=== PATIENT | male | born 1955 | race Caucasian/White ===

== ENCOUNTER 2021-05-30 12:50 | Emergency (ER) | payer BC ==
[2021-05-30] MEDS ORDERED: SODIUM CHLORIDE 0.9% 500 ML 500 ML IV STA (12:52)
[2021-05-30 12:56] LABS: Glucose,Whole Blood 126 mg/dL (75-99)
--- NOTE | 2021-05-30 12:58 | ED ---
General Adult HPI <Mago Jennings P - Last Filed: 05/30/21 16:47> - General Source: patient, EMS, RN notes reviewed, old records reviewed <Herrera Chaidez - Last Filed: 06/02/21 20:48> - General Stated complaint: possible stroke Time Seen by Provider: 05/30/21 12:50 - History of Present Illness Initial comments: This is a 65-year-old male with past medical history significant for hypertension. [place] when he started having some peripheral vision loss on the right he states it's in both eyes. Patient then had some left-sided weakness and tingling in both his arm and leg and it continues in his arm currently the leg seems to have improved. Patient's stated that he was having some intermittent slurred speech as well. P atient currently still has a little bit of visual field defect on the right he states and his arm feels tingly on the left and his face feels tingly on the left. did not report any facial droop. Patient's symptoms started approximately 45 minutes prior to arrival. Patient denies any chest pain difficult breathing shortness breath. Patient denies any pain anywhere. (Herrera Chaidez) - Related Data Home Medications Medication Instructions Recorded Confirmed Enalapril Maleate 20 mg PO DAILY 05/30/21 05/30/21 Fluoride (Sodium) [Sodium Fluoride 1 applic DENTAL HS 05/30/21 05/30/21 5000 Plus] Allergies Allergy/AdvReac Type Severity Reaction Status Date / Time No Known Allergies Allergy Verified 05/30/21 13:18 Review of Systems ROS Other: All systems not noted in ROS Statement are negative. <Mago Jennings P - Last Filed: 05/30/21 16:47> ROS Other: All systems not noted in ROS Statement are negative. <Herrera Chaidez - Last Filed: 06/02/21 20:48> ROS Statement: Those systems with pertinent positive or pertinent negative responses have been documented in the HPI. General Exam <Herrera Chaidez - Last Filed: 06/02/21 20:48> - General Exam Comments Initial Comments: GENERAL: Patient is well-developed and well-nourished. Patient is nontoxic and well- hydrated and is in mild distress. ENT: Neck is soft and supple. No significant lymphadenopathy is noted. Oropharynx is clear. Moist mucous membranes. Neck has full range of motion without eliciting any pain. EYES: The sclera were anicteric and conjunctiva were pink and moist. Extraocular movements were intact and pupils were equal round and reactive to light. Eyelids were unremarkable. PULMONARY: Unlabored respirations. Good breath sounds bilaterally. No audible rales rhonchi or wheezing was noted. CARDIOVASCULAR: There is a regular rate and rhythm without any murmurs gallops or rubs. ABDOMEN: Soft and nontender with normal bowel sounds. SKIN: Skin is clear with no lesions or rashes and otherwise unremarkable. NEUROLOGIC: Patient is alert and oriented x3. Cranial nerves II through XII are grossly intact. Patient has some slight slurred speech. Patient's finger-nose testing on the left is slightly off compared to the right. Patient's strength on the left hand is likely less than the right hand. Bilateral dorsi and plantarflexion are equal. Patient states that his arm and leg on the left feel tingly and so does his face on the left. MUSCULOSKELETAL: Normal extremities with adequate strength and full range of motion. No lower extremity swelling or edema. No calf tenderness. LYMPHATICS: No significant lymphadenopathy is noted PSYCHIATRIC: Normal psychiatric evaluation. (Herrera Chaidez) Course Vital Signs 05/30/21 05/30/21 05/30/21 12:50 13:00 13:15 Temperature 98.1 F 98.2 F Pulse Rate 88 86 82 Respiratory 16 16 16 Rate Blood Pressure 125/67 151/83 161/93 O2 Sat by Pulse 98 97 97 Oximetry 05/30/21 05/30/21 05/30/21 13:30 14:03 14:30 Temperature Pulse Rate 84 82 88 Respiratory 16 16 16 Rate Blood Pressure 158/84 150/83 158/84 O2 Sat by Pulse 98 100 97 Oximetry 05/30/21 05/30/21 05/30/21 15:15 15:20 15:24 Temperature Pulse Rate 86 35 L 147 H Respiratory 16 18 Rate Blood Pressure 152/81 44/32 70/36 O2 Sat by Pulse 97 75 L Oximetry 05/30/21 05/30/21 05/30/21 15:30 15:35 16:00 Temperature 98.2 F Pulse Rate 105 H 131 H 113 H Respiratory 12 18 20 Rate Blood Pressure 69/59 132/73 152/87 O2 Sat by Pulse 99 99 Oximetry 05/30/21 05/30/21 05/30/21 16:49 17:14 17:15 Temperature Pulse Rate 98 97 98 Respiratory 18 15 17 Rate Blood Pressure 93/58 88/58 88/58 O2 Sat by Pulse 99 98 100 Oximetry 05/30/21 05/30/21 05/30/21 17:20 18:00 18:10 Temperature 98 F Pulse Rate 105 H 87 80 Respiratory 15 15 15 Rate Blood Pressure 81/53 87/53 100/61 O2 Sat by Pulse 97 99 98 Oximetry 05/30/21 05/30/21 05/30/21 18:40 18:50 19:00 Temperature Pulse Rate 83 79 75 Respiratory 18 18 15 Rate Blood Pressure 94/67 94/67 94/67 O2 Sat by Pulse 96 97 97 Oximetry 05/30/21 05/30/21 05/30/21 19:30 20:00 20:30 Temperature Pulse Rate 71 70 73 Respiratory 14 14 15 Rate Blood Pressure 81/54 82/54 115/70 O2 Sat by Pulse 98 99 99 Oximetry 05/30/21 05/30/21 05/30/21 20:45 21:00 21:15 Temperature Pulse Rate 75 73 73 Respiratory 16 14 15 Rate Blood Pressure 84/59 76/53 81/55 O2 Sat by Pulse 97 98 100 Oximetry 05/30/21 05/30/21 05/30/21 21:30 21:45 22:00 Temperature Pulse Rate 67 74 69 Respiratory 16 16 16 Rate Blood Pressure 95/61 107/68 133/80 O2 Sat by Pulse 100 100 100 Oximetry 05/30/21 05/30/21 05/30/21 22:15 22:30 22:45 Temperature Pulse Rate 65 64 64 Respiratory 15 16 16 Rate Blood Pressure 134/76 116/69 115/68 O2 Sat by Pulse 100 100 100 Oximetry Procedures - Intubation Sedative: Versed Paralytic: Rocuronium Laryngoscope: fiber optic video scope Size: 4 ET Tube Size: 8 ET Tube Uncuffed: No Tube Secured Depth (cm): 25 Tube Secured Location: lips Tube Placement Confirmation: visualized tube passing through cords, equal breath sounds bilaterally, no breath sounds over epigastrium, confirmation by capnometry Intubation Complications: hypoxia <Mago Jennings P - Last Filed: 05/30/21 16:47> Medical Decision Making - Lab Data Result diagrams: 05/30/21 13:14 05/30/21 13:14 <Mago Jennings - Last Filed: 05/30/21 16:47> - Lab Data Result diagrams: 05/30/21 13:14 05/30/21 13:14 <Herrera Chaidez - Last Filed: 06/02/21 20:48> - Medical Decision Making A code was called to the room, apparently the patient had seizure like activity for 20-30 seconds, he was then noted to be unresponsive and bradycardic with HR of 32 appeared to be sinus rhythm on monitor. Atropine was given for bradycardia, patient's respirations were supported with BVM, despite this patient remained hypoxic. Bradycardia resolved and HR increased to 170s, patient never lost pulses but was noted to have decerebrate posturing. 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 Patient's EKG shows no ST segment elevation or depression. CTA of the head and neck shows internal carotid arteries with plaque formation right being greater than left and it's at about 50% occlusion. CT of the head shows no acute abnormality. I went back in I reevaluated the patient he had decreased sensation in the right arm and leg but no weakness at this time no slurred speech and no visual disturbance. agrees he has no facial droop or slurred speech. I spoke with the neuro interventional and Dr. nelson and he did not believe TPA was indicated at this time he wanted brilinta, Lipitor aspirin and fluids. The neurointerventionalist did not speak directly via the robot to the patient. Just prior to admission I reevaluated the patient he only had decreased sensation in the arm and leg at that time. (Herrera Chaidez) - Lab Data Lab Results 05/30/21 05/30/21 05/30/21 Range/Units 12:54 13:14 13:14 WBC 13.2 H (3.8-10.6) k/uL RBC 4.98 (4.30-5.90) m/uL Hgb 16.4 (13.0-17.5) gm/dL Hct 48.8 (39.0-53.0) % MCV 98.0 (80.0-100.0) fL MCH 32.8 (25.0-35.0) pg MCHC 33.5 (31.0-37.0) g/dL RDW 14.0 (11.5-15.5) % Plt Count 226 (150-450) k/uL MPV 7.6 Neutrophils % 77 % Lymphocytes % 14 % Monocytes % 6 % Eosinophils % 1 % Basophils % 1 % Neutrophils # 10.2 H (1.3-7.7) k/uL Lymphocytes # 1.9 (1.0-4.8) k/uL Monocytes # 0.8 (0-1.0) k/uL Eosinophils # 0.1 (0-0.7) k/uL Basophils # 0.1 (0-0.2) k/uL PT 11.2 (9.0-12.0) sec INR 1.1 (<1.2) APTT 24.8 (22.0-30.0) sec Sample Site ABG pH (7.35-7.45) ABG pCO2 (35-45) mmHg ABG pO2 (83-108) mmHg ABG HCO3 (21-25) mmol/L ABG Total CO2 (19-24) mmol/L ABG O2 Saturation (94-97) % ABG Base Excess mmol/L Jordan Test FiO2 % Sodium (137-145) mmol/L Potassium (3.5-5.1) mmol/L Chloride (98-107) mmol/L Carbon Dioxide (22-30) mmol/L Anion Gap mmol/L BUN (9-20) mg/dL Creatinine (0.66-1.25) mg/dL Est GFR (CKD-EPI)AfAm (>60 ml/min/1.73 sqM) Est GFR (CKD-EPI)NonAf (>60 ml/min/1.73 sqM) Glucose (74-99) mg/dL POC Glucose (mg/dL) 126 H (75-99) mg/dL POC Glu Quality Control Operator ID Maxine Alves Calcium (8.4-10.2) mg/dL Total Bilirubin (0.2-1.3) mg/dL AST (17-59) U/L ALT (4-49) U/L Alkaline Phosphatase (38-126) U/L Troponin I (0.000-0.034) ng/mL Total Protein (6.3-8.2) g/dL Albumin (3.5-5.0) g/dL Urine Opiates Screen (NotDetected) Ur Oxycodone Screen (NotDetected) Urine Methadone Screen (NotDetected) Ur Propoxyphene Screen (NotDetected) Ur Barbiturates Screen (NotDetected) U Tricyclic Antidepress (NotDetected) Ur Phencyclidine Scrn (NotDetected) Ur Amphetamines Screen (NotDetected) U Methamphetamines Scrn (NotDetected) U Benzodiazepines Scrn (NotDetected) Urine Cocaine Screen (NotDetected) U Marijuana (THC) Screen (NotDetected) Coronavirus (PCR) (Not Detectd) 05/30/21 05/30/21 05/30/21 Range/Units 13:14 13:14 15:27 WBC (3.8-10.6) k/uL RBC (4.30-5.90) m/uL Hgb (13.0-17.5) gm/dL Hct (39.0-53.0) % MCV (80.0-100.0) fL MCH (25.0-35.0) pg MCHC (31.0-37.0) g/dL RDW (11.5-15.5) % Plt Count (150-450) k/uL MPV Neutrophils % % Lymphocytes % % Monocytes % % Eosinophils % % Basophils % % Neutrophils # (1.3-7.7) k/uL Lymphocytes # (1.0-4.8) k/uL Monocytes # (0-1.0) k/uL Eosinophils # (0-0.7) k/uL Basophils # (0-0.2) k/uL PT (9.0-12.0) sec INR (<1.2) APTT (22.0-30.0) sec Sample Site ABG pH (7.35-7.45) ABG pCO2 (35-45) mmHg ABG pO2 (83-108) mmHg ABG HCO3 (21-25) mmol/L ABG Total CO2 (19-24) mmol/L ABG O2 Saturation (94-97) % ABG Base Excess mmol/L Jordan Test FiO2 % Sodium 134 L (137-145) mmol/L Potassium 4.0 (3.5-5.1) mmol/L Chloride 103 (98-107) mmol/L Carbon Dioxide 25 (22-30) mmol/L Anion Gap 6 mmol/L BUN 11 (9-20) mg/dL Creatinine 0.76 (0.66-1.25) mg/dL Est GFR (CKD-EPI)AfAm >90 (>60 ml/min/1.73 sqM) Est GFR (CKD-EPI)NonAf >90 (>60 ml/min/1.73 sqM) Glucose 131 H (74-99) mg/dL POC Glucose (mg/dL) 118 H (75-99) mg/dL POC Glu Quality Control Operator ID Laci Mclaughlin Calcium 9.0 (8.4-10.2) mg/dL Total Bilirubin 0.5 (0.2-1.3) mg/dL AST 22 (17-59) U/L ALT 16 (4-49) U/L Alkaline Phosphatase 88 (38-126) U/L Troponin I <0.012 (0.000-0.034) ng/mL Total Protein 6.2 L (6.3-8.2) g/dL Albumin 3.5 (3.5-5.0) g/dL Urine Opiates Screen (NotDetected) Ur Oxycodone Screen (NotDetected) Urine Methadone Screen (NotDetected) Ur Propoxyphene Screen (NotDetected) Ur Barbiturates Screen (NotDetected) U Tricyclic Antidepress (NotDetected) Ur Phencyclidine Scrn (NotDetected) Ur Amphetamines Screen (NotDetected) U Methamphetamines Scrn (NotDetected) U Benzodiazepines Scrn (NotDetected) Urine Cocaine Screen (NotDetected) U Marijuana (THC) Screen (NotDetected) Coronavirus (PCR) (Not Detectd) 05/30/21 05/30/21 05/30/21 Range/Units 17:40 18:22 18:27 WBC (3.8-10.6) k/uL RBC (4.30-5.90) m/uL Hgb (13.0-17.5) gm/dL Hct (39.0-53.0) % MCV (80.0-100.0) fL MCH (25.0-35.0) pg MCHC (31.0-37.0) g/dL RDW (11.5-15.5) % Plt Count (150-450) k/uL MPV Neutrophils % % Lymphocytes % % Monocytes % % Eosinophils % % Basophils % % Neutrophils # (1.3-7.7) k/uL Lymphocytes # (1.0-4.8) k/uL Monocytes # (0-1.0) k/uL Eosinophils # (0-0.7) k/uL Basophils # (0-0.2) k/uL PT (9.0-12.0) sec INR (<1.2) APTT (22.0-30.0) sec Sample Site Left Brachial ABG pH 7.28 L (7.35-7.45) ABG pCO2 51 H (35-45) mmHg ABG pO2 133 H (83-108) mmHg ABG HCO3 24 (21-25) mmol/L ABG Total CO2 25 H (19-24) mmol/L ABG O2 Saturation 98.6 H (94-97) % ABG Base Excess -3.1 mmol/L Jordan Test Yes FiO2 60 % Sodium (137-145) mmol/L Potassium (3.5-5.1) mmol/L Chloride (98-107) mmol/L Carbon Dioxide (22-30) mmol/L Anion Gap mmol/L BUN (9-20) mg/dL Creatinine (0.66-1.25) mg/dL Est GFR (CKD-EPI)AfAm (>60 ml/min/1.73 sqM) Est GFR (CKD-EPI)NonAf (>60 ml/min/1.73 sqM) Glucose (74-99) mg/dL POC Glucose (mg/dL) (75-99) mg/dL POC Glu Quality Control Operator ID Calcium (8.4-10.2) mg/dL Total Bilirubin (0.2-1.3) mg/dL AST (17-59) U/L ALT (4-49) U/L Alkaline Phosphatase (38-126) U/L Troponin I (0.000-0.034) ng/mL Total Protein (6.3-8.2) g/dL Albumin (3.5-5.0) g/dL Urine Opiates Screen Not Detected (NotDetected) Ur Oxycodone Screen Not Detected (NotDetected) Urine Methadone Screen Not Detected (NotDetected) Ur Propoxyphene Screen Not Detected (NotDetected) Ur Barbiturates Screen Not Detected (NotDetected) U Tricyclic Antidepress Not Detected (NotDetected) Ur Phencyclidine Scrn Not Detected (NotDetected) Ur Amphetamines Screen Not Detected (NotDetected) U Methamphetamines Scrn Not Detected (NotDetected) U Benzodiazepines Scrn Not Detected (NotDetected) Urine Cocaine Screen Not Detected (NotDetected) U Marijuana (THC) Screen Not Detected (NotDetected) Coronavirus (PCR) Not Detected (Not Detectd) Disposition <Mago Jennings - Last Filed: 05/30/21 16:47> Time of Disposition: 14:23 <Herrera Chaidez - Last Filed: 06/02/21 20:48> Clinical Impression: Cerebrovascular accident (CVA) Disposition: ADMITTED IP TO THIS [facility] Condition: Serious Referrals: None,Stated [REFERRING] - 1-2 days
--- NOTE | 2021-05-30 13:25 | CT ---
EXAMINATION TYPE: CT brain wo con for TPA DATE OF EXAM: 05/30/2021 COMPARISON: None HISTORY: Lt sided weakness, visual disturbance CT DLP: [address] of the brain was performed. The ventricles, basal cisterns and sulci overlying the cerebral convexities demonstrate mild enlargem ent. There is no evidence for intracranial hemorrhage or sulcal effacement. There is decreased attenuation about the periventricular white matter and deep white matter of both c erebral hemispheres, compatible with chronic small vessel ischemia. Differential diagnosis does inclu de demyelination. No mass effects are seen.No midline shift. Osseous calvarium is intact. If symptoms persist consider MRI. Chronic maxillary sinusitis. IMPRESSION: 1. Age related atrophic and chronic small vessel ischemic change without acute intracranial process s een at this time.
[2021-05-30 13:37] LABS: Basophils # (A) 0.1 k/uL (0-0.2); Basophils % (A) 1 %; Eosinophils # (A) 0.1 k/uL (0-0.7); Eosinophils % (A) 1 %; HCT 48.8 % (39.0-53.0); HGB 16.4 gm/dL (13.0-17.5); Lymphocytes # (A) 1.9 k/uL (1.0-4.8); Lymphocytes % (A) 14 %; MCH 32.8 pg (25.0-35.0); MCHC 33.5 g/dL (31.0-37.0); Mean Platelet Volume 7.6; Monocytes # (A) 0.8 k/uL (0-1.0); Monocytes % (A) 6 %; Neutrophils # (A) 10.2 k/uL (1.3-7.7); Neutrophils % (A) 77 %; Platelet Count 226 k/uL (150-450); RBC 4.98 m/uL (4.30-5.90); WBC 13.2 k/uL (3.8-10.6)
--- NOTE | 2021-05-30 13:37 | CT ---
EXAMINATION TYPE: CT angio head neck DATE OF EXAM: 05/30/2021 COMPARISON: None HISTORY: Lt sided weakness, visual disturbance CT DLP: 611.5 mGycm CONTRAST: Performed with IV Contrast, patient injected with 65 mL of Isovue 370. Combination Contrast CTA cervical carotids and [place] CTA cervical carotids with 3-D recons truction Contrast CTA of the cervical carotids was performed 3-D reconstruction imaging obtained at a separate workstation. Right carotid system: Mild plaque is seen of the right common carotid artery. There is mild plaque a lso noted at the carotid bulb and proximal ICA. Estimated diameter reduction of 50%. ECA is patent. Right vertebral artery appears unremarkable. Left carotid system: Mild plaque is seen of the left common carotid artery. There is mild plaque als o noted at the carotid bulb and proximal ICA. Estimated diameter reduction of 50%. ECA is patent. L eft vertebral artery appears unremarkable. IMPRESSION: 1. Bilateral ICA plaque right greater than left with 50% diameter reduction estimated. CTA [place] with 3-D reconstruction Contrast CTA of the [place] was performed 3-D reconstruction imaging obtained at a separate workstation. Vertebrobasilar system as well as intracranial portions of the internal carotid arteries and their ma deepali tributaries are patent. I do not see evidence for sizable aneurysm or vascular malformation. Pl ease note MRI provides greater sensitivity and specificity. Visualized brain appears grossly unremar kable. IMPRESSION: 1. No significant abnormality.
[2021-05-30 13:42] LABS: ALT 16 U/L (4-49); AST 22 U/L (17-59); African American GFR (CKD) >90 (>60 ml/min/1.73 sqM); Albumin 3.5 g/dL (3.5-5.0); Alkaline Phosphatase 88 U/L (38-126); Anion Gap 6 mmol/L; Blood Urea Nitrogen 11 mg/dL (9-20); Carbon Dioxide 25 mmol/L (22-30); Chloride 103 mmol/L (98-107); Glucose 131 mg/dL (74-99); Non-African American GFR(CKD) >90 (>60 ml/min/1.73 sqM); Sodium 134 mmol/L (137-145); Total Bilirubin 0.5 mg/dL (0.2-1.3); Total Protein 6.2 g/dL (6.3-8.2)
[2021-05-30 13:52] LABS: INR 1.1 (<1.2); Partial Thromboplastin Time 24.8 sec (22.0-30.0); Prothrombin Time 11.2 sec (9.0-12.0)
[2021-05-30] MEDS ORDERED: ASPIRIN 325 MG TAB PO STA (14:23)
[2021-05-30] MEDS ORDERED: TICAGRELOR 90 MG TAB PO STA (14:25)
--- NOTE | 2021-05-30 14:28 | XR ---
EXAMINATION TYPE: XR chest 2V DATE OF EXAM: 05/30/2021 COMPARISON: NONE TECHNIQUE: PA and lateral views submitted. HISTORY: Altered mental status FINDINGS: The lungs are clear and there is no pneumothorax, pleural effusion, or focal pneumonia. Hypertrophi c change of the spine. Hyperinflation correlate for COPD. There is no overt failure. Arthropathy shou lders. Heart size normal. IMPRESSION: 1. No acute process.
[2021-05-30] MEDS ORDERED: SODIUM CHLORIDE 0.9% 1,000 ML IV SCH (14:30)
[2021-05-30 15:28] LABS: Glucose,Whole Blood 118 mg/dL (75-99)
[2021-05-30] MEDS ORDERED: ROCURONIUM 10 MG/ML (5 ML VIAL) IV STA (15:38)
[2021-05-30] MEDS ORDERED: MIDAZOLAM 1 MG/ML 5 ML VIAL IV STA ×2 (15:39→16:09)
[2021-05-30] MEDS ORDERED: ATROPINE SULFATE 0.1 MG/ML 10ML SYRINGE IV STA (15:41)
--- NOTE | 2021-05-30 16:20 | CT ---
EXAMINATION TYPE: CT brain wo con DATE OF EXAM: 05/30/2021 COMPARISON: None HISTORY: Patient went unresponsive after seizure like activity and clutching his chest. CT DLP: [address] of the brain was performed. The ventricles, basal cisterns and sulci overlying the cerebral convexities demonstrate mild enlargem ent. There is no evidence for intracranial hemorrhage or sulcal effacement. There is decreased attenuation about the periventricular white matter and deep white matter of both c erebral hemispheres, compatible with chronic small vessel ischemia. Differential diagnosis does inclu de demyelination. No mass effects are seen.No midline shift. Osseous calvarium is intact. Chronic sinusitis If symptoms persist consider MRI. IMPRESSION: 1. Age related atrophic and chronic small vessel ischemic change without acute intracranial process s een at this time.
--- NOTE | 2021-05-30 16:29 | CT ---
EXAMINATION TYPE: CT angio thor/abd pel aorta DATE OF EXAM: 05/30/2021 COMPARISON: None HISTORY: Patient went unresponsive after seizure and clutching his chest. CT DLP: 1758.9 mGycm CONTRAST: CTA thoracic and abdominal aorta with 3-D reconstruction is performed and without and with IV Contras t, patient injected with 100 mL of Isovue 370. Contrast CTA of the thoracic and abdominal aorta was performed from the lung apex through the base of the pelvis. 3-D reconstruction imaging obtained at a separate workstation. CT Chest: THORACIC AORTA: There is no evidence for aneurysm. No dissection or mediastinal hematoma. Mild ath eromatous changes are seen. LUNGS: Large bilateral airspace infiltrates may reflect pneumonia and/or atelectasis. Endotracheal tu be is in place. No pulmonary nodule or mass is detected. No pleural effusion or CT evidence of inter stitial lung disease. MEDIASTINUM: The heart is not enlarged. No evidence for mediastinal mass or adenopathy. HILAR STRUCTURES: No evidence for mass. No hilar adenopathy is appreciated. OTHER: No significant abnormality. CONTRAST CT ABDOMEN AND PELVIS ABDOMINAL AORTA: No evidence for abdominal aortic aneurysm. No dissection. Iliac vessels are symmet tomeka and patent. LIVER/GB- No significant abnormality is seen. PANCREAS- No significant abnormality is seen. SPLEEN- No significant abnormality is seen. ADRENALS- No significant abnormality is seen. KIDNEYS/BLADDER- No significant abnormality is seen. BOWEL- No Significant abnormality GENITAL ORGANS: No gross abnormality seen. LYMPH NODES- No greater than 1cm abdominal or pelvic lymph nodes are appreciated. OSSEOUS STRUCTURES- No significant abnormality is seen. OTHER- No significant abnormality is seen. IMPRESSION- 1. no evidence for aneurysm or dissection. 2.Large bilateral airspace infiltrates may reflect pneumonia and/or atelectasis. Endotracheal tube is in place.
--- NOTE | 2021-05-30 16:36 | XR ---
EXAMINATION TYPE: XR chest 1V portable DATE OF EXAM: 05/30/2021 HISTORY: Shortness of breath. COMPARISON: None. TECHNIQUE: Single view of the chest is submitted. FINDINGS: Endotracheal tube is appropriately placed. Upper lobe infiltrates noted. The heart is stable. Hilar and mediastinal structures are within normal limits. Degenerative changes are seen of the dorsal spine. IMPRESSION: 1. Endotracheal tube is appropriately placed. Upper lobe infiltrates noted.
--- NOTE | 2021-05-30 17:25 | P.HPIM ---
History of Present Illness 65-year-old the came in with complaints of loss of peripheral vision on the right side appears to have right homonymous immune of severe along with some left-sided tingling numbness in his both left arm and left leg. Patient was com paring of intermittent slurred speech because of which patient is being admitted for TIA patient will usually appreciated started improving patient denied any facial droop denied any other weakness or other deficits patient was bit nauseous denied any headache seizure-like activity. Patient had a CT of the head which did not show any significant abnormality. CT of the head and neck did not show any significant abnormality either. Patient was evaluated with. They did not recommend any TPA. When I evaluated the patient, patient was going for CT of the head. After a valid the patient appears patient went into respiratory failure was subsequently intubated patient was comparing of chest pain patient had a thoracic diabetic CT which did not show any aneurysm but did show some infiltrates with air bronchogram consistent with bilateral pneumonia. Infiltrates are not consistent with Covid 19 pneumonia. Review of systems were obtained before patient was intubated REVIEW OF SYSTEMS: CONSTITUTIONAL: No fever, no malaise, no fatigue. HEENT: No recent visual problems or hearing problems. Denied any sore throat. CARDIOVASCULAR: No chest pain, orthopnea, PND, no palpitations, no syncope. PULMONARY: No shortness of breath, no cough, no hemoptysis. GASTROINTESTINAL: No diarrhea, no vomiting, no abdominal pain. NEUROLOGICAL: As mentioned above HEMATOLOGICAL: Denies any bleeding or petechiae. GENITOURINARY: Denies any burning micturition, frequency, or urgency. MUSCULOSKELETAL/RHEUMATOLOGICAL: Denies any joint pain, swelling, or any muscle pain. ENDOCRINE: Denies any polyuria or polydipsia. The rest of the 14-point review of systems is negative. PHYSICAL EXAMINATION: GENERAL: The patient is alert and oriented x3, not in any acute distress. Well developed, well nourished. HEENT: Pupils are round and equally reacting to light. EOMI. No scleral icterus. No conjunctival pallor. Normocephalic, atraumatic. No pharyngeal erythema. No thyromegaly. CARDIOVASCULAR: S1 and S2 present. No murmurs, rubs, or gallops. PULMONARY: Chest is clear to auscultation, no wheezing or crackles. ABDOMEN: Soft, nontender, nondistended, normoactive bowel sounds. No palpable organomegaly. MUSCULOSKELETAL: No joint swelling or deformity. EXTREMITIES: No cyanosis, clubbing, or pedal edema. NEUROLOGICAL: Right visual field deficits as mentioned above no other physical deficits were appreciated SKIN: No rashes. Assessment and plan: -Acute hypoxic respiratory failure requiring intubation: Secondary to extensive bilateral pneumonia patient was started on Rocephin and azithromycin. Covid 19 PCR test will be ordered although CT chest findings are more consistent with bacterial pneumonia. -Severe sepsis secondary to pneumonia -Hospital TIA/cerebro-vascular accident neurology was consulted further workup as per neurology. And is on statin and dual antiplatelet therapy at this time Hypovolemic hyponatremia patient will be started on IV fluids -Hypertension DVT prophylaxis: Lovenox Past Medical History Past Medical History: Hypertension History of Any Multi-Drug Resistant Organisms: None Reported Past Surgical History: Orthopedic Surgery Additional Past Surgical History / Comment(s): bilateral hip surgery knee surgery Past Psychological History: No Psychological Hx Reported Smoking Status: Current every day smoker Past Alcohol Use History: Daily Past Drug Use History: None Reported Medications and Allergies Home Medications Medication Instructions Recorded Confirmed Type Enalapril Maleate 20 mg PO DAILY 05/30/21 05/30/21 History Fluoride (Sodium) [Sodium Fluoride 1 applic DENTAL HS 05/30/21 05/30/21 History 5000 Plus] Allergies Allergy/AdvReac Type Severity Reaction Status Date / Time No Known Allergies Allergy Verified 05/30/21 13:18 Physical Exam Vitals: Vital Signs Temp Pulse Resp BP Pulse Ox 05/30/21 14:03 82 16 150/83 100 05/30/21 13:30 84 16 158/84 98 05/30/21 13:15 98.2 F 82 16 161/93 97 05/30/21 13:00 86 16 151/83 97 05/30/21 12:50 98.1 F 88 16 125/67 98 Intake and Output 05/30/21 05/30/21 05/30/21 06:59 14:59 22:59 Other: Weight 95.254 kg Results CBC & Chem 7: 05/30/21 13:14 05/30/21 13:14 Labs: Abnormal Lab Results - Last 24 Hours (Table) 05/30/21 05/30/21 05/30/21 Range/Units 12:54 13:14 13:14 WBC 13.2 H (3.8-10.6) k/uL Neutrophils # 10.2 H (1.3-7.7) k/uL Sodium 134 L (137-145) mmol/L Glucose 131 H (74-99) mg/dL POC Glucose (mg/dL) 126 H (75-99) mg/dL Total Protein 6.2 L (6.3-8.2) g/dL 05/30/21 Range/Units 15:27 WBC (3.8-10.6) k/uL Neutrophils # (1.3-7.7) k/uL Sodium (137-145) mmol/L Glucose (74-99) mg/dL POC Glucose (mg/dL) 118 H (75-99) mg/dL Total Protein (6.3-8.2) g/dL
[2021-05-30 17:29] VITALS: TEMP 98
[2021-05-30] MEDS ORDERED: AZITHROMYCIN 500 MG TAB PO SCH (17:30)
[2021-05-30 17:51] LABS: ABG Base Excess -3.1 mmol/L; ABG HCO3 24 mmol/L (21-25); ABG Oxygen Saturation 98.6 % (94-97); ABG PCO2 51 mmHg (35-45); ABG PH 7.28 (7.35-7.45); ABG PO2 133 mmHg (83-108); ABG TCO2 25 mmol/L (19-24); Allen Test Performed? Yes
[2021-05-30] MEDS ORDERED: AZITHROMYCIN 500 MG in SODIUM CHLORIDE 0.9% 250 ML IVPB SCH (18:30)
[2021-05-30 19:06] LABS: Amphetamine Screen,Urine Not Detected (NotDetected); Barbiturate Screen,Urine Not Detected (NotDetected); Benzodiazepines Screen,Urine Not Detected (NotDetected); Cocaine Screen,Urine Not Detected (NotDetected); Methadone Screen, Urine Not Detected (NotDetected); Opiate Screen,Urine Not Detected (NotDetected); Phencyclidine Screen,Urine Not Detected (NotDetected); Tricyclic Antidepressant,Urine Not Detected (NotDetected); Urn Cannabinoid Scrn Not Detected (NotDetected)
[2021-05-30 19:07] LABS: Oxycodone Screen, Urine Not Detected (NotDetected)
--- NOTE | 2021-05-30 20:12 | P.CNNES ---
History of Present Illness Consult date: 05/30/21 Requesting physician: Herrera Chaidez Reason for Consult: CVA History of Present Illness: Patient is a 65-year-old male with history of hypertension came to the hospital today at 12:50 PM by ambulance for strokelike symptoms. Patient at this time seen in the ER is intubated. History obtained from patient's . Patient and [place]patient while driving suddenly pulled over, stating that he could not see on the right side. Once he pulled over, and parked in the parking lot, his hands were shaking. His suggested they go to ER, but he declined. Shortly after his symptoms improved and he asked his to drive. About 20 minutes later, patient started having funny breathing, which which she felt was like a panic attack. He started complaining of numbness of his left leg, left arm and the left cheek. She then called 911, and patient was brought to the hospital. There was some report of intermittent slurred speech as well. When he arrived to the ER, patient still had some little bit of visual field defect on the right. His arm feels tingly on the left and his face feels tingly on the left. There was no report of any facial droop. There was no report of chest pain, difficulty breathing or shortness of breath. In the ER it was noted that he was oriented 3 and speech was slightly slurred. He was noted to have mild left-sided ataxia and decreased left hand lead carpenter as compared to the right. Vital signs on arrival blood pressure 125/67, pulse rate 88, temperature 98.1. Blood test shows WBC 13.2 hemoglobin 16.4, platelet 226. PT/PTT normal. Sodium 134 potassium 4.0, normal renal functions. Hepatic panel normal. CT head showed age-related atrophic and chronic small vessel ischemic changes without acute intracranial process seen at this time. CTA of the head showed no significant abnormality. CTA of the neck revealed bilateral ICA plaque, right greater than left with 50% diameter reduction. EKG shows normal sinus rhythm. Chest x-ray showed no acute process. ED staff discussed case with stroke neurologist Dr. Guerrero, and per their discussion (ED documentation), patient was considered not a candidate for TPA. Patient was started on Brilinta 90 mg and Lipitor. While in the ER, patient went to sleep. When he woke up, he started staring, almost like he was clearing his vision. His asked if he was okay. She asked him the date and he states replied "July". Regarding president, patient stated "Obkennedi". Then she asked what day is it and patient replied "Wednesday and that he has taken the day off", which was correct. Shortly after he told his "it is happening again", then he couldn't breathe and it appeared he was going to throw up, then he went into a seizure, lasting for 20-30 seconds. Patient was given atropine for bradycardia. He remained hypoxic and the heart rate then went up to 170s. He was noted to be decerebrate posturing. Patient was intubated. Patient underwent CT angios of chest, which showed no evidence for aneurysm or dissection. Large bilateral airspace infiltrates may reflect pneumonia and/or atelectasis. ET tube in place. A repeat computed tomography scan of head was also done, which showed no acute change. Patient's also reported that after he underwent his left hip surgery in April 2020, after he was discharged, he started having hallucinations, agitation and was intubated and in ICU for 1 week. It was felt to be due to alcohol withdrawal. He stopped drinking alcohol. In July 2020, he had right hip replacement. He was sent home, but within a week of discharge, he "cracked his femur", requiring another surgery. He again became altered, started acting strange, and was in ICU for 2 days. Thereafter he was in rehab for 2-1/2 weeks. Patient smoked 1 pack per day for last 20-30 years. He does not take any antiplatelet medication at home. Patient only takes enalapril. Patient has history of bilateral knee replacement. Patient has history of alcoholism in the past, but nothing since his first hip surgery in April 2020. Review of Systems ROS unobtainable: due to endotracheal tube, due to mental status Past Medical History Past Medical History: Hypertension History of Any Multi-Drug Resistant Organisms: None Reported Past Surgical History: Orthopedic Surgery Additional Past Surgical History / Comment(s): bilateral hip surgery knee surgery Past Psychological History: No Psychological Hx Reported Smoking Status: Current every day smoker Past Alcohol Use History: Daily Past Drug Use History: None Reported Medications and Allergies Home Medications Medication Instructions Recorded Confirmed Type Enalapril Maleate 20 mg PO DAILY 05/30/21 05/30/21 History Fluoride (Sodium) [Sodium Fluoride 1 applic DENTAL HS 05/30/21 05/30/21 History 5000 Plus] Allergies Allergy/AdvReac Type Severity Reaction Status Date / Time No Known Allergies Allergy Verified 05/30/21 13:18 Physical Examination - Vital Signs Vital Signs: Vital Signs Temp Pulse Resp BP Pulse Ox 05/30/21 14:03 82 16 150/83 100 05/30/21 13:30 84 16 158/84 98 05/30/21 13:15 98.2 F 82 16 161/93 97 05/30/21 13:00 86 16 151/83 97 05/30/21 12:50 98.1 F 88 16 125/67 98 Intake and Output 05/30/21 05/30/21 05/30/21 06:59 14:59 22:59 Other: Weight 95.254 kg On examination patient is an elderly male, who is intubated, also on sedation with propofol 10 g. He was on propofol 25 g, just decreased to 10 g around 15 minutes ago. Patient is severely comatose, not responsive to calling his name, or deep nailbed pressure or sternal rub. Patient's pupils are 8 mm, nonreactive, likely due to effect of atropine. Oculocephalics are ?minimally present. Corneas are absent. Face cannot be assessed as patient is intubated. Other cranial nerves could not be tested. Muscle strength could not be tested. Tone is equal. Patient is appearing to experience decerebrate posturing in the lower extremities. Reflexes are 1+ and plantar is possible up on the right, flat on the left. Sensory, cerebellar functions, gait cannot be checked. Patient also has just recently received rocuronium 50 mg, Versed 5 mg 2 recently for intubation along with atropine 1 mg, which is probably the cause of limitation of examination as above. Results - Laboratory Findings CBC and BMP: 05/30/21 13:14 05/30/21 13:14 Abnormal Lab Findings: Abnormal Labs 05/30/21 05/30/21 05/30/21 12:54 13:14 13:14 WBC 13.2 H Neutrophils # 10.2 H Sodium 134 L Glucose 131 H POC Glucose (mg/dL) 126 H Total Protein 6.2 L 05/30/21 15:27 WBC Neutrophils # Sodium Glucose POC Glucose (mg/dL) 118 H Total Protein Assessment and Plan Assessment: * 65-year-old male admitted with possible stroke/TIA type symptoms (right-sided visual field deficit, slurred speech and numbness of left side of the body), was considered not a candidate for TPA. Patient developed seizure type spell followed by unresponsiveness requiring placement on mechanical ventilation. Patient at present is showing decerebrate posturing. Exact cause remains uncertain. CTA of head and neck showed no large vessel occlusion. * Ventilator-dependent respiratory failure, requiring mechanical ventilation. * Bilateral infiltrates. * Hypertension * Tobacco use * History of bilateral hip, bilateral knee replacement. * Previous history of alcoholism, (but as per 's report, none since July 2020). MCV is borderline 98.0. Hepatic panel normal. Plan: * Patient was earlier given Brilinta 90 mg and aspirin 325 mg. * Patient needs urgent EEG (perhaps continuous monitoring), and MRI of the brain. As the patient is intubated, and uncertain for how long he would remain intubated. This facility does not have ventilator compatible MRI machine. Therefore I would recommend patient to be transferred to higher level of care, where patient can have an EEG, and MRI urgently. * Keppra 500 mg twice a day. * Patient has been started on Rocephin 2 g every 24 hours. * If patient stays in this hospital overnight, Dr. Cesar will be covering the neurology service in the morning. Addendum 8:30 PM: Patient showing no clinical improvement. Patient on propofol 20.5 g. Pupils still dilated, nonreactive. Patient continues to have posturing of lower extremities. Patient being transferred to [facility] (per family request, where he has been hospitalized before. Discussed with patient's and daughter in detail.) Time with Patient: Greater than 30
[2021-05-30] MEDS ORDERED: NOREPINEPHRINE 4 MG in SODIUM CHLORIDE 0.9% 250 ML IV ONE (20:42)
[2021-05-30] MEDS ORDERED: ATORVASTATIN 80 MG TAB PO SCH (21:00)
[2021-05-30] MEDS ORDERED: levETIRAcetam IV 500 MG in SODIUM CHLORIDE 0.9% 100 ML IVPB SCH (21:00)
[2021-05-30 22:09] VITALS: RESP 16
[2021-05-30 22:53] VITALS: BP 115/68; PULSE 64
--- NOTE | 2021-05-31 07:50 | P.DS ---
Providers Expected date of discharge: 05/30/21 Consults: 05/30/21 14:24 Consult Physician Routine Consulting Provider: Renata Verduzco Consult Reason/Comments: CVA Do you want consulting provider notified?: Yes 05/30/21 16:28 Consult Physician Stat Consulting Provider: Cas Wilson Consult Reason/Comments: ICU Do you want consulting provider notified?: Already Contacted Primary care physician: Cornel Mancuso MD Hospital Course: Patient came in as a code stroke with visual changes to his right visual field. Patient subsequently went into respiratory failure was subsequently intubated found to have bilateral lower lobe pneumonia. Patient was started on antibiotics blood cultures were obtained later on neurology validate the patient they recommended transfer to a higher level facility where patient can get an MRI while intubated. My concern is back to [facility] considering that patient has bilateral pneumonia as well as strokelike symptoms which can be explained by septic emboli to brain as well as infection in the lung. Blood cultures were obtained. Patient was subsequently transferred to a different facility. Please refer to my HPI for further details. Patient Condition at Discharge: Serious Plan - Discharge Summary New Discharge Prescriptions: No Action Fluoride (Sodium) [Sodium Fluoride 5000 Plus] 1 applic DENTAL HS Enalapril Maleate 20 mg PO DAILY Discharge Medication List Enalapril Maleate 20 mg PO DAILY 05/30/21 [History] Fluoride (Sodium) [Sodium Fluoride 5000 Plus] 1 applic DENTAL HS 05/30/21 [History] Follow up Appointment(s)/Referral(s): None,Stated [REFERRING] - 1-2 days Discharge Disposition: DC/TRNS INTERMEDIATE CARE FAC
[2021-05-31] MEDS ORDERED: ASPIRIN 325 MG TAB PO SCH (09:00)
== END 2021-05-30 23:10 | disposition other institution (70) ==
LOC: EC 12:50 → UNDOADMIN 14:24 → 3SCARD 14:24 → 2SICU 15:57 → EC 23:10
DX: I63.9 Cerebral infarction, unspecified (principal); I10 Essential (primary) hypertension; Z20.822 Contact with and (suspected) exposure to COVID-19; Z79.899 Other long term (current) drug therapy
CPT/HCPCS: 36415; 36600; 94002; 93005; 80053; 82805; 84484; 85025; 85610; 85730; 87040; 80306; 87070; 87205; 87635; 71045; 71046; 70496; 70450 ×2; 70498; 71275; 74174; 99285; 96360; 31500; J0456; J0696; J0461; J2250; J1953; J2704; Q9967